=== PATIENT | male | born 1990 | race Caucasian/White ===

== ENCOUNTER → 2016-07-25 05:51 | Day surgery (SDC) | payer OTHER ==
[~2016-07-25 05:51] MED LIST: Buffered Lidocaine 1% SYR 3ML* 3 ML/SYR SYRINGE INTRADERM ONE; Buffered Lidocaine 1% SYR 3ML* 3 ML/SYR SYRINGE ONE; Bupivacaine 0.25% SDV* 30 ML ONE; Dexamethasone IV* 4 MG/ML 1 ML (4 MG) IV SLOW PU ONE; Dexamethasone IV* 4 MG/ML 1 ML (4 MG) ONE; Famotidine IV* 10 MG/ML 2 ML (20 mg) IV ONE; Famotidine IV* 10 MG/ML 2 ML (20 mg) ONE; Ketorolac INJ* 30 MG/ML 1 ML VIAL ONE; Lidocaine 2% MPF* 2 ML VIAL ONE; Midazolam* 1 MG/ML 5 ML VIAL (5 MG) ONE; Ondansetron INJ* 2 MG/ML VIAL ONE; PROCHLORPERAZINE INJ 5 MG/ML 2 ML VIAL IV PRN; Propofol* 10 MG/ML 20 ML BTL IV PUSH ONE; Rocuronium* 10 MG/ML VIAL ONE; ceFAZolin 2 GM PREMIX (*) 2 GM/50 ML BAG IVPB ONE; fentaNYL* 50 MCG/ML 2 ML VIAL (100 MCG VIAL) ONE; fentaNYL* 50 MCG/ML 5 ML VIAL (250 MCG VIAL) ONE; oxyCODONE/Acetamin 5/325 MG* TAB ONE
[2016-07-25] MEDS: fentaNYL* 50 MCG/ML 2 ML VIAL (100 MCG VIAL) IV PRN ×3 (11:52→12:20)
[2016-07-25] MEDS: oxyCODONE/Acetamin 5/325 MG* TAB PO PRN ×2 (11:52→11:54)
[2016-07-25 13:17] VITALS: BP 145/94
--- NOTE | 2016-07-25 13:30 | RAD ---
INDICATION: Right hip labral injury COMPARISON: None FINDINGS: 2.5 minutes of fluoroscopy were provided for the orthopedics department. Fluoroscopic spot imaging of the right hip were obtained for operative control. CPT II Codes: 6045F (fluoro time doc)
--- NOTE | 2016-08-18 01:15 | OP ---
DATE OF OPERATION: 07/25/16 [facility] DATE OF : [birth year] SURGEON: Pedro Titus MD HVAC MECHANICAL ENGINEER: YOLANDA Angulo. ANESTHESIOLOGIST: Dr. Angus Marcos. ANESTHESIA: General. 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 OPERATIVE PROCEDURE: Right hip arthroscopy with labral debridement and osteoplasty of pincer and cam lesion. 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 He noticed it while playing [employer]. He does not recall any specific injuries. He has tried extensive physical therapy. He did have a cortisone injection which helped him quite a bit. He had an MRI and imaging consistent with labral tear. His exam was consistent with labral tear. He reported catching, clicking, and locking of the hip. He had pain with most activities. Risks and benefits of surgery were discussed at length with the patient and his family and they have elected to proceed with surgery. Risks include but are not limited to bleeding, infection, damage to nerve, vessels, surrounding structures, wound healing problems, persistent pain , incomplete relief of symptoms, worsening arthritis, failure of the repair, damage to nerves, vessels, surrounding structures, fracture, need for further surgery, risk of DVT, risk of anesthesia, incomplete relief of symptoms. He has elected to proceed with surgery. TRACTION TIME: Under 2 hours. ESTIMATED BLOOD LOSS: Minimal. COMPLICATIONS: None. FINDINGS: The traction provided good access to the hip joint without evidence of underlying hyperlaxity. Arthroscopic exam showed a large labral tear from the 10 o'clock to 2 o'clock position. This was subluxed and had a lot of fraying as well as maceration. The unstable labral tear required repair, although in the presence of repairing, the tissue quality could not hold the stitches. The labrum was of normal size. There was a wave sign involving the articular cartilage which indicated delamination of the acetabulum to the position of the labral tear. There was minimal damage at the acetabular cartilage; otherwise, cartilage of the femoral head was intact. DESCRIPTION OF PROCEDURE: The patient was greeted in the preoperative area by the attending surgeon. The correct extremity was marked. Consent was confirmed. The patient was brought back to the operating suite where he was placed in the supine position on the operating table. He then underwent general anesthesia endotracheal intubation which he tolerated without difficulty. As the patient was asleep, the well-padded extremity boots were placed along the foot and ankle and the patient was then brought into the leg holders and fixated. After he was secured appropriately, gross traction was applied to balance the pelvis, initially beginning with the nonoperative extremity, then the operative extremity was placed in a dynamic leg duncan using the Leyva and Nephew hip distraction system with the leg placed in neutral adduction with slight flexion and gentle internal rotation to bring the femoral head neck parallel to the floor to facilitate atraumatic access. The right arm was then secured over the patient. The right hip was then prepped and draped in the usual sterile fashion with a pre-scrub of chlorhexidine soap and alcohol and final prep with ChloraPrep. After a miniature surgical pause, gross traction was then applied to the operative extremity under sterile conditions and under sterile conditions, an 18 -gauge spinal needle was introduced to the joint to break the acetabular seal. After this was done, fine traction was applied to the joint, was distracted to about 1.5 cm which was appreciated on the large C-arm. Traction was then released. The right hip was then prepped and draped in the usual sterile fashion beginning with ChloraPrep. After appropriate surgical pause indicating side, site, procedure, administration of antibiotics, the traction was then placed back on to the hip to allow for 1.5 cm of distraction. Then, the anterior labral peritrochanteric portal was accessed using the long spinal needle. This was confirmed under fluoroscopy. Then, the cannula and the arthroscope was introduced through the joint atraumatically. A mid anterior portal was made in the similar fashion after needle localization. Once the needle placement was confirmed, the cannula was then placed atraumatically. A 70-degree scope was used to identify the hip including the femoral head which had grade 0 changes. There was wave sign on the acetabular ridge that was adjacent to the labral tear. The labrum had unstable flap and was degenerative and somewhat macerated. The scope was then switched between the portals to ensure that no portal was penetrating the labrum. Then, an irrigation pump was set at 40 mmHg to provide consistent pressure during the entirety of the case. The capsulotomy was then done using Helena blade. First the compartment synovectomy was done using a full-radius curved shaver to eliminate the portion of synovium that was visible with care preserving joint capsule. The capsular reflection was then cleared back from the rim of the acetabulum exposing the region of the acetabular rim prominence and focal retroversion. A 4-mm round bur was then used to perform rim trimming. The Helena blade was then used to release the labrum off the edge of the acetabulum , so as to protect it while doing the rim trimming. This was then recontoured back to a stable edge. Once the pincer osteoplasty was complete, attention was then directed to the labrum. The pincer was recontoured back to stable edge. This was based on preoperative templating. This was carried out into the subspine region to remove AIIS bony impingement. This was confirmed with a C- arm and then cross-over sign was eliminated. Attention was directed to the acetabulum. One Q-FIX anchor was placed and as it was tried to pass in a horizontal mattress configuration, the labrum tissue itself dissolved as the knots were being tied and ripped through the sutures. At this point, it was determined that the labrum was macerated to such a great degree that it would not hold the stitch. Therefore, the shaver was used to debride back the unstable fraying edge with care to preserve as much of the labrum as possible but with care to not allow any unstable flaps. After the debridement was complete, the traction was released. This was confirmed using the C-arm, as well as arthroscopically. The femoral head and neck were then further visualized exposing a mild-to- moderate cam lesion. Preoperative templating was used a guide for femoral neck osteoplasty. This was carried out using a 4-0 round bur. Careful resection was carried out from superior to lateral and inferior to medial area with careful monitoring using a C- arm to ensure any elimination of the femoral-sided impingement. The femoral head and neck was also normalized. Care was taken to prevent iatrogenic injury to the lateral epiphyseal vessels post resection. Dynamic testing was done under direct visualization. C-arm was used to ensure there was no bony impingement. At this point, meticulous hemostasis was obtained after careful evaluation of the labrum and soft tissues and removal of osseous debris in the peripheral spaces. The scope was withdrawn from the joint. Spinal needle was then inserted into the joint and 3 cc of sterile injectable saline and 30 mg Toradol were intra-articularly injected into the hip. Skin incisions were then copiously irrigated and closed in layered fashion with 2-0 Vicryl and 3-0 nylon. Portals were then injected with 0.25% Marcaine for postoperative pain control. Sterile dressings were applied along with a Cryo/Cuff. Thigh-high DB stockings were applied to both extremities. He was awoken from anesthesia, transferred to the PACU in stable condition. POSTOPERATIVE PLAN: He was discharged on the same day. He was given a prescription for OxyContin for 5 days, Percocet, Naprosyn 500 mg for 30 days, Ambien 10 mg for 5 days. He will start gentle range of motion and exercise. He will start physical therapy on postop day #1. He will sit on a high-seat bike. He will be partial weightbearing 50% for the first 2 weeks. He will be using the DB stockings. He is planning to go home and therefore a long discussion about DVT prophylaxis was discussed at length. He will call the office if he has any calf pain and he will go to the ER if needed. DVT risk prophylaxis was discussed but deferred due to no previous personal or family history. I will see him back in 10 to 14 days and review the x-rays of his hip. [id number]/[facility] #: [id number] PREMA
--- NOTE | 2016-12-24 04:01 | OP ---
OPERATIVE REPORT:* DATE OF OPERATION: 07/25/16 ADDENDUM: INDICATIONS: The patient's joint space had no indications of arthritis and there was no absence of joint space narrowing on plain radiographs of the pelvis. The joint space was not less than 2 mm wide anywhere along the sourcil. [id number]/[facility] #: [id number] MTDD
== END | disposition home or self-care (01) ==
LOC: OR 05:51 → MERGE 05:51
PROVIDERS: ATTEND Orthopaedic Surgery
DX: M24.851 Other specific joint derangements of right hip, not elsewhere classified (principal); R01.1 Cardiac murmur, unspecified
CPT/HCPCS: A9270-GY; C1713; J0690; J1100; J1885; J2250; J2405; J2704; J3010

== ENCOUNTER 2017-08-20 22:16 | Emergency (ER) | payer OTHER ==
[2017-08-20 22:20] VITALS: BP 147/98
[2017-08-20] MEDS ORDERED: Lidocaine 2% PF * 5 ML VIAL ONE (23:49)
--- NOTE | 2017-08-21 00:15 | ED ---
Umesh Inman Thomas, scribed for Gordon Jamison MD on 08/21/17 at 0003 . Laceration/Wound HPI - HPI Summary HPI Summary: The patient presents with a laceration to his left middle finger. Bleeding is controlled. The laceration appears 1 cm. - History of Current Complaint Stated Complaint: LT MIDDLE FINGER LAC Time Seen by Provider: 08/20/17 23:39 Hx Obtained From: Patient Onset/Duration: Still Present Aggravating: Other - Touch Alleviating: Nothing Timing: Constant Onset Severity: Moderate Current Severity: Mild Pain Intensity: 5 Pain Scale Used: 0-10 Numeric Associated Signs & Symptoms: Negative - fever - Allergy/Home Medications Allergies/Adverse Reactions: Allergies Allergy/AdvReac Type Severity Reaction Status Date / Time No Known Allergies Allergy Verified 08/20/17 22:20 PMH/Surg Hx/FS Hx/Imm Hx Endocrine/Hematology History: Denies: Hx Diabetes Cardiovascular History: Reports: Hx Hypertension - NO MEDS Denies: Hx Pacemaker/ICD, Other Cardiovascular Problems/Disorders Respiratory History: Denies: Other Respiratory Problems/Disorders GI History: Denies: Other GI Disorders History: Denies: Hx Renal Disease Sensory History: Reports: Hx Contacts or Glasses - GLASSES Denies: Hx Hearing Aid Opthamlomology History: Reports: Hx Contacts or Glasses - GLASSES Neurological History: Denies: Other Neuro Impairments/Disorders Psychiatric History: Denies: Hx Panic Disorder - Surgical History Surgery Procedure, Year, and Place: TONSILS. ADENOIDS. WISDOM TEETH Hx Anesthesia Reactions: Yes - WOKE UP DURING WISDOM TEETH Infectious Disease History: No Infectious Disease History: Denies: Traveled Outside the [place] in Last 30 Days - Family History Known Family History: Positive: Other - Patient denies relevant FHx - Social History Alcohol Use: Weekly Alcohol Amount: 2 PER WEEK Substance Use Type: Reports: None Smoking Status (MU): Never Smoked Tobacco Review of Systems Negative: Fever Positive: Other - Finger laceration All Other Systems Reviewed And Are Negative: Yes Physical Exam - Summary Physical Exam Summary: VITAL SIGNS: Reviewed. GENERAL: Patient is a well-developed and nourished MALE who is lying comfortable in the stretcher. Patient is not in any acute respiratory distress. HEAD AND FACE: No signs of trauma. No ecchymosis, hematomas or skull depressions. No sinus tenderness. EYES: PERRLA, EOMI x 2, No injected conjunctiva, no nystagmus. EARS: Hearing grossly intact. Ear canals and tympanic membranes are within normal limits. MOUTH: Oropharynx within normal limits. NECK: Supple, trachea is midline, no adenopathy, no JVD, no carotid bruit, no c- spine tenderness, neck with full ROM. CHEST: Symmetric, no tenderness at palpation LUNGS: Clear to auscultation bilaterally. No wheezing or crackles. CVS: Regular rate and rhythm, S1 and S2 present, no murmurs or gallops appreciated. ABDOMEN: Soft, non-tender. No signs of distention. No rebound no guarding, and no masses palpated. Bowel sounds are normal. EXTREMITIES: FROM in all major joints, no edema, no cyanosis or clubbing. NEURO: Alert and oriented x 3. No acute neurological deficits. Speech is normal and follows commands. SKIN: Dry and warm. On the patient's left middle finger, there is a 1 cm laceration. Triage Information Reviewed: Yes Vital Signs On Initial Exam: Initial Vitals Temp Pulse Resp BP Pulse Ox 98.6 F 89 18 147/98 99 08/20/17 22:18 08/20/17 22:18 08/20/17 22:18 08/20/17 22:18 08/20/17 22:18 Vital Signs Reviewed: Yes Procedures - Laceration/Wound Repair 1 Location: Other - On the patient's left middle finger, there is a 1 cm laceration Anesthesia: 2.0%, Lido - 1 cc Length, Depth and Shape: 1 cm Suture Type: Nylon Number of Sutures: 3 Diagnostics - Vital Signs Vital Signs Temp Pulse Resp BP Pulse Ox 08/20/17 22:18 98.6 F 89 18 147/98 99 - Laboratory Lab Statement: Any lab studies that have been ordered have been reviewed, and results considered in the medical decision making process. Laceration Repair Course/Dx - Course Assessment/Plan: The patient presents with a laceration to his left middle finger. Bleeding is controlled. The laceration appears 1 cm. The laceration was repaired with three stitches. I used 1 cc lidocaine 2%. The patient is unsure of his tetanus status in the emergency department. He will check with his primary care physician tomorrow, and if his last vaccination was more than 5 years ago, he will go to urgent care for a vaccination. The patient will follow up in 10 days for a check of his stitches. - Clinical Impression Provider Diagnoses: Laceration of left middle finger Discharge - Discharge Plan Condition: Stable Disposition: HOME Patient Education Materials: Care For Your Stitches (ED), Laceration (ED) Referrals: Diego Knight MD [Primary Care Provider] - (FOLLOW UP IN 10 DAYS) Additional Instructions: Follow up with your primary care physician or urgent care in 10 days for a check of the stitches. Remember to check your tetanus status tomorrow. If it is less than 5 years, you need to follow up at urgent care or your primary care. Return to the emergency department or any new or worsening symptoms. The documentation as recorded by the Umesh santos Thomas accurately reflects the service I personally performed and the decisions made by , Gordon Jamison MD.
== END 2017-08-21 00:18 | disposition home or self-care (01) ==
LOC: ED 22:16
DX: S61.213A Laceration without foreign body of left middle finger without damage to nail, initial encounter (principal); X58.XXXA Exposure to other specified factors, initial encounter; Y92.9 Unspecified place or not applicable
CPT/HCPCS: 12001; 99281